=== PATIENT | male | born 1980 | race Caucasian/White ===

== ENCOUNTER 2023-10-12 12:31 | Emergency (ER) | payer BC ==
[~2023-10-12] VITALS: Ht 188 cm; Wt 109.1 kg
[2023-10-12 12:34] VITALS: TEMP 98.5
[2023-10-12] MEDS ORDERED: Rabies Immune Globulin PF 300 UNITS/2 ML VIAL IM ONE (13:15)
[2023-10-12 13:57] VITALS: BP 143/86; PULSE 81
[2023-10-15] MEDS ORDERED: VOLTAREN 75 DR75 MG PO (17:31)
[2023-10-15] MEDS ORDERED: ROBAXIN 75750 MG/TAB PO (17:31)
== END 2023-10-12 13:57 | disposition home or self-care (01) ==
LOC: COL.ER 12:31
DX: Z20.3 Contact with and (suspected) exposure to rabies (principal)